=== PATIENT | male | born 1975 | race Caucasian/White ===

== ENCOUNTER 2017-12-26 20:47 | Emergency (ER) | payer MEDICAID, MEDICARE ==
--- NOTE | 2017-12-26 21:21 | ED Physician Chart ---
ED Chief Complaint/HPI - Patient Information Date Seen:: 12/26/17 Time Seen:: 21:16 Chief Complaint:: BACK PAIN RECTAL BLEEDING Allergies:: Allergies Allergy/AdvReac Type Severity Reaction Status Date / Time MDX Ketorolac [From Toradol] Allergy Verified 08/09/12 08:02 MDX Meperidine [From Demerol] Allergy Verified 08/09/12 08:02 MDX Morphine [Morphine] Allergy RASH Verified 08/09/12 09:24 Historian:: Patient ED Review of Systems - Review of Systems General/Constitutional: No fever, No chills, No weight loss, No weakness, No diaphoresis, No edema, No loss of appetite Skin: No skin lesions, No rash, No bruising Head: No headache, No light-headedness Eyes: No loss of vision, No pain, No diplopia ENT: No earache, No nasal drainage, No sore throat, No tinnitus Neck: Neck pain Cardio Vascular: No chest pain, No palpitations, No PND, No orthopnea, No edema Pulmonary: No SOB, No cough, No sputum, No wheezing GI: Nausea, Vomiting, Diarrhea, Melena, Hematochezia, No constipation, No hematemesis G/U: No dysuria, No frequency, No hematuria Musculoskeletal: Back pain Endocrine: No polyuria, No polydipsia Psychiatric: No prior psych history, No depression, No anxiety, No suicidal ideation Hematopoietic: No bruising, No lymphadenopathy Allergic/Immuno: No urticaria, No angioedema Neurological: Weakness, Paresthesia, Headache, Dizziness ED Past Medical History - Past Medical History Obtainable: No Past Medical History: Other (BACK PAIN) Surgical History: other (BACK SURGERY APPENDECTOMY) Other PMH History: BACK SUGERY CHRONIC BACK PAIN Family Medical History - Family Member Mother History Unknown: Yes ED Physical Exam - Physical Examination GI: No organomegaly (BACK PARALUMBAR TENDERNESS AND DECREASED LEG PAINS PT STATES HE CAN NOT FEEL HIS LEGS), No hernia Other GI comments:: MULTIPLE ABD SCARS Neuro/Psych: Alert/oriented ED Labs/Radiology/EKG Results - EKG Interpretations Rate & Rhythm: NSR N@81 NO ACUTE CHANGES ED Assessment - Assessment General Assessment: NUMBNESS LEGS AND BACK PAIN AND WATERY STOOL WITH BLOOD ED Septic Shock - . Is Septic Shock (SBP<90, OR Lactate>4 mmol\L) present?: No ED Reassessment (Disposition) - Reassessment Reassessment Condition:: Improved
[2017-12-26] MEDS ORDERED: Sodium Chloride 0.9% 1,000 ML IV ONE (21:57)
[2017-12-26] MEDS ORDERED: Morphine Sulfate 4 mg/mL 1mL Syr IV STA (22:27)
[2017-12-26] MEDS ORDERED: Morphine Sulfate 4 mg/mL 1mL Syr ONE (22:29)
[2017-12-26 22:51] LABS: URINE MICROSCOPIC INDICATED? YES; URINE SOURCE CLEAN C
[2017-12-26 22:54] LABS: % BASOPHILS 0.2 % (0.0-2.0); % EOSINOPHILS 0.7 % (0.0-5.0); % LYMPHOCYTES 20.1 % (20.0-50.0); EOSINOPHILE ABSOLUTE 0.1 Th/cmm (0.1-0.4); HEMATOCRIT 44.6 % (41.0-60); HEMOGLOBIN 14.9 gm/dL (12-16); LYMPHOCYTE ABSOLUTE 1.7 Th/cmm (1.5-3.0); MEAN CELL VOLUME 88.5 fl (80-99); MEAN CORPUSCULAR HEMOGLOBIN 29.7 pg (26.0-30.0); MEAN CORPUSCULAR HGB CONC 33.5 pg (28.0-36.0); MEAN PLATELET VOLUME 7.1 fl; MONOCYTE ABSOLUTE 0.6 Th/cmm (0.3-1.0); NEUTROPHILE ABSOLUTE 5.9 Th/cmm (1.8-8.0); PLATELET COUNT 218 Th/cmm (150-400); RED BLOOD COUNT 5.04 Mil/cmm (4.30-5.70); RED CELL DISTRIBUTION WIDTH 12.5 % (11.5-20.0); WHITE BLOOD COUNT 8.3 Th/cmm (4.8-10.8)
[2017-12-26 23:00] LABS: URINE BILIRUBIN NEGATIVE (NEGATIVE); URINE BLOOD NEGATIVE (NEGATIVE); URINE GLUCOSE (UA) NEGATIVE (NEGATIVE); URINE KETONE NEGATIVE (NEGATIVE); URINE LEUKOCYTE ESTERASE NEGATIVE (NEGATIVE); URINE NITRATE NEGATIVE (NEGATIVE); URINE PROTEIN NEGATIVE (NEGATIVE)
[2017-12-26 23:01] LABS: URINE CLARITY CLEAR (CLEAR); URINE COLOR YELLOW
[2017-12-26 23:14] LABS: URINE BACTERIA OCCASIONAL /hpf (NONE SEEN); URINE EPITHELIAL CELLS OCCASIONAL /lpf (FEW); URINE RBC 0-2 /hpf (0-5); URINE WBC 0-2 /hpf (0-5)
[2017-12-26 23:15] LABS: ALB/GLOB RATIO 1.7 (1.0-1.8); ALBUMIN 3.8 gm/dL (4.2-5.5); ALKALINE PHOSPHATASE 57 U/L (34-104); ANION GAP 10.6 (7.0-16.0); BILIRUBIN,TOTAL 0.4 mg/dL (0.3-1.0); BUN - UREA NITROGEN 16 mg/dL (7-25); CALCIUM SERUM 9.1 mg/dL (8.6-10.3); CARBON DIOXIDE 26.3 mEq/L (21.0-31.0); CHLORIDE 106 mEq/L (98-107); CREATININE - SERUM 0.9 mg/dL (0.7-1.3); GFR AFRICAN-AMERICAN > 60.0 ml/min (>90); GFR NON AFRICAN-AMERICAN > 60.0 ml/min; GLUCOSE 95 mg/dL (70-105); POTASSIUM SERUM 3.9 mEq/L (3.5-5.1); SGOT 12 U/L (13-39); SGPT/ALT 10 U/L (7-52); SODIUM SERUM 139 mEq/L (136-145); TOTAL PROTEIN,SERUM 6.1 gm/dL (6.0-8.3)
[2017-12-26 23:29] LABS: AMPHETAMINE URINE NEGATIVE (NEGATIVE); BARBITURATES URINE NEGATIVE (NEGATIVE); BENZODIAZEPINES QUAL URINE NEGATIVE (NEGATIVE); CANNABINOID THC NEGATIVE (NEGATIVE); COCAINE METABOLITE QUAL URINE NEGATIVE (NEGATIVE); METHADONE URINE NEGATIVE (NEGATIVE); METHAMPHETAMINES QUAL URINE NEGATIVE (NEGATIVE); OPIATES (MORPHINE) QUAL. URINE NEGATIVE (NEGATIVE); PHENCYCLIDINE (PCP) URINE NEGATIVE (NEGATIVE); TRICYCLICS (TCA) QUAL. URINE NEGATIVE (NEGATIVE)
--- NOTE | 2017-12-27 08:58 | Diagnostic Imaging Report ---
CT abdomen and pelvis without intravenous contrast Indication: Rectal pain Comparison: CT abdomen and pelvis on 05/01/2013 Technique: Axial images were obtained from the lung bases to the bilateral proximal femurs without IV contrast. Coronal reconstructions were made. total DLP: 550, CTDI11.7 FINDINGS: Hypoventilatory changes and atelectatic changes of the lung bases are noted. Trace pericardial fluid is noted Assessment of the solid organs is limited due to lack of IV contrast. No evidence of focal hepatic lesions. The patient status post cholecystectomy. No evidence of focal splenic, pancreatic, or adrenal lesions. No evidence of hydronephrosis or focal renal lesions. Pelvic phleboliths are noted. Unchanged calcifications of the right inguinal region are noted. Moderate stool is seen throughout the colon. Diverticulosis is noted without evidence of diverticulitis. The appendix appears to have been removed. Under distention versus focal areas of bowel wall thickening are seen along the cecum. Mild stool is seen within the rectum. Postsurgical changes of the ventral abdominal wall are noted. Distended stomach is noted with food contents No free fluid or free air. Minimal atherosclerosis is noted. Postsurgical changes of the lumbar spine are seen with evidence of previous fusion of L4/L5. 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 IMPRESSION: Mild stool within the rectum. Additional generalized moderate stool is noted without evidence of bowel obstruction. Diverticulosis without evidence of diverticulitis. Underdistended versus focal bowel wall thickening of the cecum. Infectious/inflammatory or neoplastic etiology cannot be excluded. Correlate with clinical findings and colonoscopy. Distended stomach containing food contents Evidence of prior cholecystectomy and prior appendectomy Evidence of posterior fusion of L4 and L5. Avascular necrosis of bilateral femoral heads. Postsurgical change along the ventral abdominal wall.
== END 2017-12-27 00:05 | disposition home or self-care (01) ==
LOC: ER 20:47
DX: M54.5 Low back pain (principal); R11.2 Nausea with vomiting, unspecified; K92.1 Melena; Z88.5 Allergy status to narcotic agent; Z88.8 Allergy status to other drugs, medicaments and biological substances; Z98.890 Other specified postprocedural states
CPT/HCPCS: 36415-UA; 80053-TC; 80307; 81001-TC; 85025-TC; 96374; J7030